=== PATIENT | female | born 1960 | race Two or more races ===

== ENCOUNTER → 2023-08-25 | Emergency (ER) | payer OTHER ==
[~2023-08-25] VITALS: Ht 170.2 cm; Wt 76.2 kg
[~2023-08-25] MED LIST: AMOX-CLAV 875-1 EAC1 PO; ATIVAN0.5 M1 PO; FLONASE ALLERG9.9 ML NASAL; MUCINEX DM ER1 EACH PO; SINGULAIR10 MG PO; ZESTRIL10 M1 PO; ZYRTEC10 MG PO
== END | disposition home or self-care (01) ==
LOC: ER 11:02
DX: J32.9 Chronic sinusitis, unspecified (principal); I10 Essential (primary) hypertension